=== PATIENT | male | born 1945 | race Caucasian/White ===

== ENCOUNTER 2016-04-24 01:37 | Inpatient (IN) | payer MEDICARE, OTHER ==
--- NOTE | 2016-04-23 03:55 | NUR ---
ARRIVED TO FLOOR FROM ER, ALERT AND ORIENTED X3, RESP UNLAB WITH O2 @ 4L NC IN USE. RT CHEST BURN FROM ABLATION NOTED WITH BURN NOTED ON LEFT UPPER BACK FROM ABLATION. UP AD HAIDER W/O DIFF. CONTINUE TO MONITOR. HOB UP SR UP X2, C/L IN REACH. AT BEDSIDE FOR NIGHT.
[~2016-04-24] VITALS: Ht 182.9 cm; Wt 108.2 kg
[2016-04-24] VITALS (17 sets, daily range): BP systolic 102–190; BP diastolic 44–96; BMI 34.0
[~2016-04-24 01:37] MED LIST: ALTACE5 MG PO; ASPIRIN EC81 M1 PO; COUMADIN3 MG PO; COUMADIN6 MG PO; FOLATE0.4 MG PO; GLUCOPHAGE1000 MG PO; ISOSORBIDE MONO60 M1 PO; LOPRESSOR25 MG PO; NORVASC5 MG PO; PLAVIX75 MG PO; PROSCAR5 MG PO; SYNTHROID50 MCG PO; UROXATRAL10 MG PO; VITAMIN B-121000 MCG PO; VITAMIN D PO; ZOCOR20 MG PO
[2016-04-24 02:07] LABS: BASOPHILS 0.2 % (0.0-2.0); EOSINOPHILS 1.2 % (0-7); HEMATOCRIT 38.6 % (42.0-54.0); HEMOGLOBIN 13.3 g/dL (13.5-17.5); IMMATURE GRANULOCYTES 0.4 % (0-5); LYMPHOCYTES 9.4 % (15-50); MCH 30.6 pg (26.0-34.0); MCHC 34.5 g/dL (31.0-37.0); MCV 88.9 fL (80.0-100.0); MEAN PLATELET VOLUME 10.6 fL (7.4-10.4); MONOCYTES 8.3 % (2-11); NEUTROPHILS 80.5 % (40-80); PLATELET COUNT 145 10x3/uL (130-400); RBC 4.34 10x6/uL (4.20-6.10); RDW 14.7 % (11.5-14.5); WBC 10.8 10x3/uL (4.8-10.8)
[2016-04-24 02:16] LABS: INR 1.92 (0.85-1.17); PROTIME 21.9 SECONDS (11.6-15.0)
[2016-04-24 02:20] LABS: APPEARANCE CLEAR (CLEAR); COLOR YELLOW (YELLOW); LEUKOCYTE ESTERASE NEGATIVE (NEGATIVE); SPECIFIC GRAVITY 1.015 (1.005-1.020)
[2016-04-24 02:21] LABS: BILIRUBIN NEGATIVE (NEGATIVE); GLUCOSE NEGATIVE (NEGATIVE); KETONE NEGATIVE (NEGATIVE); NITRITE NEGATIVE (NEGATIVE); PROTEIN NEGATIVE (NEGATIVE); UROBILINOGEN NORMAL (NORMAL)
[2016-04-24 02:21] LABS: ALBUMIN 3.2 g/dL (3.4-5.0); ALKALINE PHOSPHATASE 53 U/L (46-116); ALT (SGPT) 21 U/L (10-68); CALC OSMOLALITY 281 mosm/kg (275-300); CALCIUM 8.7 mg/dL (8.5-10.1); CARBON DIOXIDE 27.8 mmol/L (21.0-32.0); CHLORIDE - SERUM 104 mmol/L (98-107); GLUCOSE 133 mg/dL (74-106); POTASSIUM - SERUM 3.3 mmol/L (3.5-5.1); PROTEIN - SERUM 6.4 g/dL (6.4-8.2); SODIUM 141 mmol/L (136-145); UREA NITROGEN 11 mg/dL (7-18); eGFR NON AFRICAN AMERICAN 79 mL/min (90-120)
[2016-04-24 02:38] LABS: PRO BNP 2258 pg/mL (0-125); THYROID STIMULATING HORMONE 0.45 uIU/mL (0.36-3.74)
[2016-04-24 02:41] LABS: TROPONIN-I 0.978 ng/mL (0.000-0.060)
--- NOTE | 2016-04-24 04:17 | NUR ---
PT ALERT ORIENTED CONVERSANT. TRANSFERED SELF FROM STRETCHER TO BED. IV TO LEFT HAND, FLUSHES NO S/S INFILTRATION. RECTANGULAR PARHAM NOTED TO RIGHT CHEST AND LEFT FLANK
--- NOTE | 2016-04-24 04:25 | NUR ---
PT ER PAPERWORK STATES THAT PT IS A SMOKER. CLARIFIED WITH PT SPOUSE. PT HAS NEVER SMOKED
[2016-04-24] MEDS ORDERED: DILATRATE-SR40 MG PO (04:39)
[2016-04-24] MEDS ORDERED: BETAPACE 80 MG80 MG PO (04:52)
[2016-04-24] MEDS ORDERED: CARTIA XT120 MG PO (04:52)
[2016-04-24] MEDS ORDERED: SYNTHROID50 MCG PO (04:54)
[2016-04-24] MEDS ORDERED: [UNRECOGNIZED DRUG - OTHER] (05:09)
[2016-04-24] MEDS ORDERED: FOLIC ACID1 MG PO (05:09)
[2016-04-24] MEDS ORDERED: CARAFATE1 G PO (10:47)
[2016-04-24] MEDS ORDERED: OMEPRAZOLE20 M1 PO (10:48)
[2016-04-24] MEDS ORDERED: SORINE80 MG PO (10:50)
[2016-04-24] MEDS ORDERED: PROSCAR5 MG PO (10:51)
--- NOTE | 2016-04-24 11:15 | NUR ---
ALERT AND ORIENTED X4. COMPLAINS OF SOB. BP-182/109, P-109 SINUS TACH ON TELEMETRY. 02-80% 10L NC. NOTIFY DR. GONZALEZ. 40MG LASIX IV ORDERED. LUNGS CRACKLE. RESPIRATIONS LABORED. OXYMIZER 10L UNSUCCESSFUL IMPROVING O2 SAT. RESPIRATORY INITIATES 100% NONREBREATHER MASK. BP-215/111, P-111 SINUS TACH ON TELEMETRY. O2-90% WITH 100% NONREBREATHER MASK. ORDER TO TRANSFER TO ICU. PATIENT'S CALLED TO INFORM CHANGE. TRANSFER TO ROOM 2301. BEDSIDE REPORT GIVEN TO NICKY VIDAL.
--- NOTE | 2016-04-24 11:35 | NUR ---
RECIEVED PT FROM FLOOR VIA BED ACCOMPANIED BY FLOOR NURSE AND RESPIRATORY THERAPY. RECIEVED REPORT FROM FLOOR NURSE. NOTED RESPIRATIONS AT 30 WITH USE OF ACCESSORY MUSCLES. PT IS ALERT AND ORIENTED. LUNG SOUNDS DIMINISHED WITH EXPIRATORY CRACKLES TO RIGHT LOWER LOBE. PULSE RATE 115 AFIB WITH PVC. BLOOD PRESSURE 190/144, MAP 158. OXYGEN SATURATION AT 96% WITH BIPAP AT 100%. WILL PHYSICIAN ON FLOOR AT THIS TIME. WILL CONTINUE PLAN OF CARE.
--- NOTE | 2016-04-24 12:00 | NUR ---
REID PLACED ORDERED. NOTED 700ML CLEAR YELLOW FLUID INTO DRAINAGE BAG. THIS IS AFTER PT HAS URINATED 450 ML INTO URINAL AT 1150. WILL CONTINUE PLAN OF CARE.
[2016-04-24 12:12] LABS: CKMB 1.9 U/L (0.0-3.6); CREATINE KINASE 64 UL (21-232); PRO BNP 2404 pg/mL (0-125)
[2016-04-24 12:17] LABS: TROPONIN-I 0.897 ng/mL (0.000-0.060)
--- NOTE | 2016-04-24 12:27 | NUR ---
NOTED CONSULT WITH DR ODONNELL FOR CAD/CHF. CALLED [facility] TO SEE IF HE WAS SALES ADVISOR. DR ODONNELL INDEED IS SALES ADVISOR. [facility] STAFF STATED THEY COULD PAGE DR ODONNELL AT THIS TIME. WAITING FOR CALLBACK.
--- NOTE | 2016-04-24 12:37 | NUR ---
NOTED MULTIPLE ORDERS CANCELLED IN SYSTEM STATING NOT CONTINUED UPON TRANSFER SUCH A PHYSICAN CONSULT, XRAYS, AND LAB ORDERS. DR GONZALEZ HAD NOTIFIED THIS NURSE OF PHYSICIAN CONSULT FOR CARDIOLOGY BEFORE COMPUTER DC ORDERS WHICH IS HOW THIS PROBLEM WAS NOTICED, BUT NOW THERE ARE OTHER ORDERS WHICH STATE CANCELLED. CALLED DR GONZALEZ AT THIS TIME TO CLARIFY IF ORDERS NEED TO BE REORDERED OR NOT. WAITING FOR DR GONZALEZ TO CALL BACK. CLIENT INTEGRATION MANAGER NOTIFIED.
--- NOTE | 2016-04-24 12:46 | NUR ---
SPOKE WITH DR GONZALEZ NOTED THE CANCELLED ORDERS WERE UNINTENTIONALLY DC BY COMPUTER DURING TRANSFER. WILL REPLACE ORDERS AT THIS TIME.
--- NOTE | 2016-04-24 12:52 | NUR ---
UP IN BED AWAKE AT THIS TIME EATING LUNCH. DENIES ANY NEEDS. NO ACUTE DISTRESS NOTED. OXYGEN SATURATION AT 96% WITH OXIMIZER AT 13L. NO COMPLAINT OF PAIN. WILL CONTINUE PLAN OF CARE.
--- NOTE | 2016-04-24 13:10 | NUR ---
NOTED THERE ARE MORE MEDS WHICH HAVE BEEN DC BY COMPUTER FROM TRANSFER. SPOKE WITH DR GONZALEZ AND SHE GAVE AN ORDER TO CONTINUE PT HOME MEDS. RECIEVED LIST OF PT HOME MEDS FROM PT . WILL CONTINUE PT HOME MEDS PER ORDERS.
--- NOTE | 2016-04-24 13:54 | NUR ---
NOTED NEW ORDERS BY DR GONZALEZ OF [facility] PRN PAIN WELL A KPAD.
--- NOTE | 2016-04-24 13:54 | NUR ---
SITTING UP IN BED AWAKE AT THIS TIME. NO DISTRESS NOTED. PRN NORCO ADMIN AT THIS TIMR FOR A PAIN LEVEL OF 5 TO HIP. NO ACUTE DISTRESS NOTED. WILL CONTINUE PLAN OF CARE.
--- NOTE | 2016-04-24 14:02 | NUR ---
SECOND IV PLACED TO LEFT AC, 20G. FLUSHES WELL.
--- NOTE | 2016-04-24 16:18 | NUR ---
SEEING ORDERS WHICH HAVE BEEN DC BY THIS NURSE. I HAVE NOT DISCONTINUED ANY ORDERS FOR THIS PATIENT. THIS OCCURRED WHEN I CLICKED THE BUTTON "PROCESS TRANSFER ORDERS" WHEN I RECIEVED THE PATIENT TO THE UNIT. BY CLICKING THIS BUTTON WAS THE ONLY WAY I COULD SEE ORDERS FOR MY PATIENT UPON ARRIVAL TO MY UNIT AND MULTIPLE ORDERS SUCH FOR MEDICATIONS, LABS, CONSULTS, AND SO ON WERE DC. THIS NURSE HAS NOT DC ANY ORDERS. HAVE SPOKEN WITH DR GONZALEZ MULTIPLE TIMES TRYING TO REINSTATE ORDERS WHICH WERE DC BY COMPUTER. AGAIN THIS NUSE HAS NOT DISCONTINUED ANY ORDERS FOR THIS PATIENT.
--- NOTE | 2016-04-24 17:29 | NUR ---
SITTING UP IN BED AWAKE AT THIS TIME. NO DISTRESS NOTED. PT STATES HE FEELS VERY GOOD. NO COMPLAINTS OF PAIN NOTED. WILL CONTINUE PLAN OF CARE.
--- NOTE | 2016-04-24 18:06 | NUR ---
UP IN BED VISITING WITH FAMILY. DENIES ANY NEEDS. NO ACUTE DISTRESS NOTED. NO SHORTNESS OF BREATH NOTED. WILL CONTINUE PLAN OF CARE.
--- NOTE | 2016-04-24 19:30 | NUR ---
RECEIVED PATIENT AWAKE IN BED WATCHING TV, ASSESSMENT COMPLETED PER FLOWSHEET. PATIENT IS AO X4, DEMEANOR IS PLEASANT. EYES PERRLA @ 3MM WITH BRISK RESPONSE, SCLERA IS WHITE. ORAL/NASAL MUCOSA IS MOIST AND INTACT, TONGUE MIDLINE. S1/S2 NOTED WITH PATIENT SHOWING AFIB-CONTROLLED WITH A RATE OF 94 ON TELEMETRY, SLIGHTLY IRREGULAR. LUNG SOUNDS ARE CLEAR BILATERAL UPPER WITH SLIGHTLY DIMINISHED LOWER, BREATHING IS EVEN AND EFFORTLESS. ABDOMEN IS ROUND/SOFT AND NON-TENDER TO PALPATION, BOWEL SOUNDS ACTIVE X4. REID SECURED IN PLACE, CLEAR YELLOW URINE NOTED IN COLLECTION BAG. ALL PULSES PALPABLE, NO WEAKNESS NOTED IN CHIEF SCIENTIFIC OFFICER/PEDAL. 20G IV L AC & 20G IV L HAND NOTED, PATENT WITH FLUIDS INFUSING. PATIENT STATES PAIN 1/10 IN R GROIN AREA, DOES NOTE NEED ANYTHING AT THIS TIME. PATIENT STATES EXTENSIVE CARDIACE HISTORY, REPORTS 5 STENTS/4 BALLOON/3 ABLASION PROCEDURES. PATIENT DENIES OTHER NEEDS AT THIS TIME, ALL VSS AND WILL CONTINUE TO MONITOR.
--- NOTE | 2016-04-24 23:00 | NUR ---
REASSESSMENT COMPLETE PER FLOWSHEET, PATIENT RESTING IN BED WITH EYES OPEN. BREATHING IS EVEN AND UNLABORED, OXYGEN SAT 98% ON 3L VIA NC. S1/S2 NOTED WITH CONTROLLED AFIB ON TELEMETRY, RHYTHM IS SLIGHTLY IRREGULAR. PATIENT STATES NO PAIN, "JUST CAN'T GET COMFORTABLE". NO FURTHER NEEDS AT THIS TIME, ALL VSS AND WILL CONTINUE TO MONITOR.
[2016-04-25] VITALS (19 sets, daily range): BP systolic 92–129; BP diastolic 53–85; Ht 182.9 cm; Wt 108.2 kg
--- NOTE | 2016-04-25 01:00 | NUR ---
PATIENT RESTIN GIN BED WITH EYES CLOSED, BREATHING IS EVEN AND EFFORTLESS. NO NEEDS AT THIS TIME, ALL VSS AND WILL CONTINUE TO MONITOR.
--- NOTE | 2016-04-25 02:56 | NUR ---
REASSESSMENT COMPLETE PER FLOWSHEET, PATIENT RESTING IN BED WITH EYES CLOSED. BREATHING IS EVEN AND UNLABORED, OXYGEN SAT 96% ON 5L VIA NC. PATIENT DENIES PAIN OR OTHER NEEDS AT THIS TIME, ALL VSS AND WILL CONTINUE TO MONITOR.
--- NOTE | 2016-04-25 05:00 | NUR ---
PATIENT RESTING IN BED WITH EYES CLOSED, BREATHING IS EVEN AND EFFORTLESS. PATIENT DENIES PAIN OR OTHER NEEDS AT THIS TIME, ALL VSS AND WILL CONTINUE TO MONITOR.
[2016-04-25 05:03] LABS: BASOPHILS 0.2 % (0.0-2.0); EOSINOPHILS 1.2 % (0-7); HEMATOCRIT 40.1 % (42.0-54.0); HEMOGLOBIN 13.9 g/dL (13.5-17.5); IMMATURE GRANULOCYTES 0.3 % (0-5); LYMPHOCYTES 14.3 % (15-50); MCH 30.3 pg (26.0-34.0); MCHC 34.7 g/dL (31.0-37.0); MCV 87.4 fL (80.0-100.0); MEAN PLATELET VOLUME 10.6 fL (7.4-10.4); MONOCYTES 7.8 % (2-11); NEUTROPHILS 76.2 % (40-80); PLATELET COUNT 151 10x3/uL (130-400); RBC 4.59 10x6/uL (4.20-6.10); RDW 14.3 % (11.5-14.5); WBC 10.4 10x3/uL (4.8-10.8)
[2016-04-25 05:13] LABS: INR 1.65 (0.85-1.17); PROTIME 19.4 SECONDS (11.6-15.0)
[2016-04-25 05:26] LABS: ANION GAP 12.6 mmol/L (8-16); BILIRUBIN - TOTAL 1.4 mg/dL (0.2-1.3); CARBON DIOXIDE 31.1 mmol/L (21.0-32.0); CREATININE - SERUM 1.1 mg/dL (0.6-1.3); MAGNESIUM - SERUM 1.3 mg/dL (1.8-2.4); PHOSPHOROUS 2.1 mg/dL (2.5-4.9); PROTEIN - SERUM 7.4 g/dL (6.4-8.2)
[2016-04-25 05:31] LABS: POTASSIUM - SERUM 2.7 mmol/L (3.5-5.1)
--- NOTE | 2016-04-25 06:09 | NUR ---
POTASSIUM 2.7, FIRST DOSE 20 MEQ K+ GIVEN AND NEXT DOSE IN 2HRS. WILL CONTINUE TO MONITOR.
--- NOTE | 2016-04-25 07:30 | NUR ---
SHIFT ASSESSMENT COMPLETE. SEE FLOW SHEET FOR FINDINGS. PT IS ALERT AND CONVERSANT. DENIES PAIN OR NEEDS AT THIS TIME. ON 3L O2 SAT 97% OR ABOVE. NO I FLUIDS INFUSING AT THIS TIME. SCD'S ON.
--- NOTE | 2016-04-25 08:15 | NUR ---
MORNING MEDICATIONS GIVEN. FIRST DOSES OF REPLACEMENT MAGNESIUM AND PHOSPHORUS GIVEN.
--- NOTE | 2016-04-25 12:17 | NUR ---
AT BEDSIDE. PT HAS BEEN RESTING WITH LIGHTS OFF AND DOOR CLOSED. VITAL SIGNS STABLE.
--- NOTE | 2016-04-25 13:11 | NUR ---
PT UP TO BEDSIDE TOILET. MINIMAL ASSIST NEEDED (ONLY TO WATCH LINES)
--- NOTE | 2016-04-25 13:32 | NUR ---
PT HAS BEEN OFF O2 FOR LAST 30 MINUTES. HAS BEEN SATTING 95-96% ON ROOM AIR EVEN WHEN UP TO TOILET. WILL CONTINUE TO MONITOR
--- NOTE | 2016-04-25 13:51 | NUR ---
CALLED CARDIOLOGY OFFICE AND SPOKE WITH ROBIN ABOUT PT BEING STABLE ENOUGH TO GO TO FLOOR. SHE SPOKE WITH MAT POWELL AND SHE GIVES CARDIOLOGY OK FOR MOVING TO FLOOR. DR PATRICIO HAS ALSO SAID PT MAY GO TO FLOOR.
--- NOTE | 2016-04-25 13:56 | NUR ---
SPOKE WITH JERILYN FERGUSON WHO HAD DR ISLAS SITTING NEXT TO HER. ASKED IF SHE WAS OK WITH MR VIDALES TO GO TO FLOOR, SHE SAID HE COULD. WILL PLACE ORDER
--- NOTE | 2016-04-25 15:34 | NUR ---
Is the patient Alert and Oriented? Yes 0 * How many steps to enter\exit or inside your home? one 0 * PCP DR Yinka Bryant 0 * [facility] [address] 0 * Preadmission Environment Home with Family 0 * ADLs Independent 0 * Equipment None 0 * Other Equipment n/a 0 * List name and contact numbers for known caregivers / representatives who currently or will assist patient after discharge: Anna CallahanJpxuad-[phone]- [phone]- home number Jono Callahan- [phone]- son 0 * Community resources currently utilized None 0 * Please name any agencies selected above. N/A 0 * Additional services required to return to the preadmission environment? No 0 * Can the patient safely return to the preadmission environment? Yes 0 * Has this patient been hospitalized within the prior 30 days at any hospital? Yes 0 Grand Total: 0
--- NOTE | 2016-04-25 16:06 | NUR ---
CM met w/ the patient and his son in the room. Patient will likely be transferred this pm to telemetry unit. He is alert and oriented. States he feels comfortable. His plan at discharge is to return to home w/ his . He will have transportation. Patient does not feel he will need home health services. States he will discuss with DR Ng. CM explained the role of case management. Advised MD would have to order H/H if indicated and he would select a provider w/ his binder caser. Has never had home care services. Patient denies any needs at this time. Patient had cardiac ablation w/ DR Durant the prior to admission. Developed fever, shortness of breath and cough. Has Hx of HTN/ Stents/ Angioplasty/ A Fib/ CAD. Reportedly has sleep apnea. NO BIPAP or CPAP. Denies any DME. States was independent in care prior to admission. PCP DR casandra Padilla [facility] [address] CM will follow to assist w/ DCP if needed.
--- NOTE | 2016-04-25 16:49 | NUR ---
PT UP IN CHAIR EATING DINNER.
--- NOTE | 2016-04-25 19:00 | NUR ---
RECEIVED PATIENT IN BED RESTING WITH EYES CLOSED, ASSESSMENT COMPLETED PER FLOWSHEET. PATIENT IS AO X4, DEMEANOR IS PLEASANT. EYES PERRLA AT 3MM WITH BRISK RESPONSE, SCLERA IS WHITE. ORAL/NASAL MUCOSA IS MOIST AND INTACT, PATIENT OXYGEN SAT 94% ON ROOM AIR. S1/S2 NOTED WITH PATIENT NSR ON TELEMETRY, RATE IS RHYTHMIC AND REGULAR. LUNG SOUNDS ARE CLEAR BILATERAL UPPER WITH SLIGHTLY DIMINISHED LOWER, BREATHING IS EVEN AND EFFORTLESS. ABDOMEN IS ROUND AND SOFT, BOWEL SOUNDS ACTIVE X4. REID SECURED IN PLACE WITH STATLOCK, CLEAR YELLOW URINE NOTED IN COLLECTION BAG. ALL PULSES PALPABLE WITH NO WEAKNESS NOTED IN DIRECTOR SALES SUPPORT/PEDAL STRENGTH. 20G PIV NOTED L HAND & L FOREARM, PATENT AND SEE FLOW SHEET FOR FLUIDS. BRUISES NOTED BILATERAL GROIN, PATIENT STATES FROM PREVIOUS CARDIAC PROCEDURES. PATIENT DENIES PAIN OR OTHER NEEDS AT THIS TIME, ALL VSS AND WILL CONTINUE TO MONITOR.
--- NOTE | 2016-04-26 | NUR ---
PATIENT XFER TO 2119, REPORT CALLED TO LOI SAUNDRES.
--- NOTE | 2016-04-26 00:30 | NUR ---
PT RECIEVED FROM ICU, ACCOMPANIED BY DAHLIA SAUNDERS AND UPDATE RECIEVED. PT AMBULATED SELF FROM WHEEL CHAIR TO BED. REID IN PLACE. PT DENIES PAIN/NEEDS AT THIS TIME. NO S&S OF ACUTE DISTRESS NOTED. TELEMETRY APPLIED. 2LNC ON. RR EVEN AND UNLABORED. S1S2 AUSCULTATED, REGULAR. LUNG SOUND CLEAR IN UPPER LOBES AND DIMINISHED IN LOWER LOBES. WILL CONTINUE TO MONITOR.
--- NOTE | 2016-04-26 02:30 | NUR ---
PT SLEEPING, NO S&S OF ACUTE DISTRESS NOTED, RR EVEN AND UNLABORED. VSS ATT, WILL CONTINUE TO MONITOR.
[2016-04-26 04:19] VITALS: BP 134/74
--- NOTE | 2016-04-26 05:26 | NUR ---
PT SLEEPING, NO S&S OF ACUTE DISTRESS NOTED. VSS ATT, WILL CONTINUE TO MONITOR.
[2016-04-26 06:01] LABS: BASOPHILS 0.2 % (0.0-2.0); EOSINOPHILS 2.7 % (0-7); HEMATOCRIT 39.9 % (42.0-54.0); HEMOGLOBIN 14.2 g/dL (13.5-17.5); IMMATURE GRANULOCYTES 0.2 % (0-5); LYMPHOCYTES 15.7 % (15-50); MCHC 35.6 g/dL (31.0-37.0); MCV 87.1 fL (80.0-100.0); MEAN PLATELET VOLUME 10.8 fL (7.4-10.4); MONOCYTES 8.5 % (2-11); NEUTROPHILS 72.7 % (40-80); PLATELET COUNT 177 10x3/uL (130-400); RBC 4.58 10x6/uL (4.20-6.10); RDW 14.2 % (11.5-14.5); WBC 9.9 10x3/uL (4.8-10.8)
[2016-04-26 06:28] LABS: ALBUMIN 3.2 g/dL (3.4-5.0); ANION GAP 13.4 mmol/L (8-16); BILIRUBIN - TOTAL 1.1 mg/dL (0.2-1.3); CALCIUM 9.5 mg/dL (8.5-10.1); CARBON DIOXIDE 30.9 mmol/L (21.0-32.0); CREATININE - SERUM 1.2 mg/dL (0.6-1.3); MAGNESIUM - SERUM 1.4 mg/dL (1.8-2.4); POTASSIUM - SERUM 3.3 mmol/L (3.5-5.1); PROTEIN - SERUM 6.8 g/dL (6.4-8.2)
[2016-04-26 07:45] VITALS: BP 138/76
[2016-04-26 12:20] VITALS: BP 141/82
--- NOTE | 2016-04-26 13:08 | NUR ---
CHECKED WITH PHARMACY([facility] ABOUT MAXIPIME COMPATIABLE WITH LASIX GTT). [facility] SAYS THEY ARE COMPATIABLE.
[2016-04-26 15:43] VITALS: BP 139/91
--- NOTE | 2016-04-26 17:10 | NUR ---
FSBS 109
[2016-04-26 20:09] VITALS: BP 108/65
[2016-04-27 01:22] VITALS: BP 132/75
[2016-04-27 05:35] LABS: BASOPHILS 0.5 % (0.0-2.0); EOSINOPHILS 5.8 % (0-7); IMMATURE GRANULOCYTES 0.7 % (0-5); LYMPHOCYTES 20.5 % (15-50); MCH 30.6 pg (26.0-34.0); MCV 87.5 fL (80.0-100.0); MEAN PLATELET VOLUME 10.5 fL (7.4-10.4); NEUTROPHILS 61.5 % (40-80); PLATELET COUNT 198 10x3/uL (130-400); RBC 4.57 10x6/uL (4.20-6.10); RDW 14.2 % (11.5-14.5); WBC 8.8 10x3/uL (4.8-10.8)
[2016-04-27 06:08] LABS: ANION GAP 12.1 mmol/L (8-16); CALCIUM 9.6 mg/dL (8.5-10.1); CARBON DIOXIDE 32.1 mmol/L (21.0-32.0); CREATININE - SERUM 1.3 mg/dL (0.6-1.3); POTASSIUM - SERUM 3.2 mmol/L (3.5-5.1)
[2016-04-27 06:27] VITALS: BP 113/59
--- NOTE | 2016-04-27 07:29 | NUR ---
PT LAYING IN BED NO DISTRESS OBSERVED CALL LIGHT IN REACH SRX2 BED LOW AND LOCKED IVP TO LEFT AC INFUSING CARDEZIM ORDERED @ 10 IN ROOM AT BEDSIDE RESPERATIONS EVEN AND UNLABORED ON 2LNC TELEMETRY READING SR WILL MONITOR
[2016-04-27 08:00] VITALS: BP 109/55
--- NOTE | 2016-04-27 11:30 | NUR ---
PT IS ALERT. ASSESSMENT DONE PER FLOWSHEET. NOOTHER NEEDS AT THIS TIME.W ILL CONTINUE TO MONITOR.
[2016-04-27 11:42] VITALS: BP 111/71
--- NOTE | 2016-04-27 12:07 | NUR ---
Nutrition follow-up: Diet: Low sodium PO intake 100% of last 3 meals Labs reviewed +BM Wt: 238# PO intake is good at this time. RDN following.
[2016-04-27] MEDS ORDERED: FLORAJEN3 CAPS460 MG PO (15:24)
[2016-04-27] MEDS ORDERED: VIBRAMYCIN 100100 MG PO (15:27)
[2016-04-27 16:00] VITALS: BP 110/74
--- NOTE | 2016-04-27 16:35 | NUR ---
Patient Name: ANGEL VIDALES Encounter No: [id number] : 1945 Primary Insurance: MEDICARE A & B Anticipated DC Date: 04-27-2016 Planned Disposition: Home DCP follow-up note: CM MET WITH PT IN ROOM TO DISCUSS DISCHARGE NEEDS AND PLANNING. CM DISCUSSED AVAILABILITY OF HOME HEALTH, REHAB SERVICES AND MEDICAL EQUIPMENT. PT DENIES DISCHARGE NEEDS. SPOUSE TO TRANSPORT HOME AT DISCHARGE. IMPORTANT MESSAGE FROM MEDICARE PROVIDED AND EXPLAINED. CM OFFERED TO HAVE HOME HEALTH CALL PT AFTER DISCHARGE TO ENSURE HE WAS DOING OK AND TO ARRANGE HOME HEALTH IF NEEDED. PT DECLINED AND REPORTS ABILITY TO CALL HIMSELF. CM EXPLAINED HOW TO CONTACT HIS PHYSICIAN'S OFFICE FOR HOME HEALTH IF NEEDED, PROVIDED PT WITH HOME HEALTH [employer] FOR 5 LOCAL AGENCIES IF NEEDED AND ALSO EXPLAINED ABILITY OF PT AND HOW TO ACCESS INPATIENT REHAB OR JAIL FACILITY FOR REHAB EVALUATION WITHIN 30 DAYS AFTER DISCHARGE FOR POSSIBLE REHAB ADMISSION IF NEEDED. PT REPORTED UNDERSTANDING, DENIES DISCHARGE NEEDS. AKILAH WILD, CASE MANAGEMENT
--- NOTE | 2016-04-28 13:59 | EC ---
PATIENT:ANGEL VIDALES DATE OF SERVICE: 04/24/16 SEX: M MEDICAL RECORD: [id number] DATE OF : [birth year] LOCATION:D.M2 D.212 AGE OF PATIENT: 70 ADMISSION DATE: 04/24/16 REFERRING PHYSICIAN: INTERPRETING PHYSICIAN: MICAELA KIM MD ECHOCARDIOGRAM REPORT ECHO CHARGES 4 ECHO COMPLETE CLINICAL DIAGNOSIS: CHF HX CAD/STENTS/AFIB ECHOCARDIOGRAPHIC MEASUREMENTS (adult normal given) AC root (d.<3.7cm) 4.0 LV Septum d (<1.2 cm> 1.4 Valve Excursion 2.3 LV Septum (systole) 1.6 Left Atria (s.<4.0cm> 3.7 LVPW d(<1.2cm) 1.7 RV (d.<2.3cm) 4.4 LVPW (sytole) 1.9 LV diastole(<5.6CM) 5.2 MV E-F(>70mm/sec) LV systole 3.8 LVOT Diameter 1.8 MV exc.(>10mm) Est.ejection fraction (50-75%) Pericardial Effusion Y DOPPLER: LVIT A 114 E LA RVSP 35 LVOT 103 AOP1/2T Asc. Ao 140 RVOT 139 RA PA 166 AV Gradient Peak 7.89 AV Mean 4.94 AV Area 2.2 MV Gradient Peak 10.21 MV Mean 4.63 MV Area COMMENTS: [employer] Bookkeeper: Ronit ABEL Flour Distributor:Raquel Nuno TAPE# PACS DATE OF SERVICE: 04/25/2016 Echocardiogram FINDINGS: 1. Left ventricular chamber size is within normal limits. Left ventricular systolic function is normal. Overall ejection fraction estimated at 55%. 2. Left atrium is within normal limits at 3.7 cm. Right atrium and right ventricular chamber sizes are mildly dilated. 3. Valvular structures have normal structure and motion. ECHOCARDIOGRAM REPORT [id number] ANGEL VIDALES 4. Doppler interrogation reveals mild mitral regurgitation, mild tricuspid regurgitation, no other valvular insufficiency or stenosis. 5. No evidence of pericardial effusion or left ventricular thrombus. TRANSINT:[id number] Voice Confirmation ID: [id number] DOCUMENT ID: [id number] MICAELA KIM MD at 1359 CC: [id number] DICTATION DATE: 04/27/16922 BANQUET STEWARD: 04/27/1658 DIS IN 04/27/16 [facility] [address] [place], [facility]
== END 2016-04-27 17:11 | disposition home or self-care (01) | DRG 189 ==
LOC: D.ER 01:37 → D.ICU 02:48 → D.M2 02:48 → D.ICU 11:32 → D.M2 04-26 00:37
PROVIDERS: Emergency Medicine; Internal Medicine Pulmonary Disease; ADMIT Family Medicine
PROC: 5A09357 Assistance with Respiratory Ventilation, Less than 24 Consecutive Hours, Continuous Positive Airway Pressure (ICD-10-PCS; principal; 2016-04-24)
PROC: 0T9B70Z Drainage of Bladder with Drainage Device, Via Natural or Artificial Opening (ICD-10-PCS; 2016-04-24)
DX: J96.01 Acute respiratory failure with hypoxia (principal); J18.9 Pneumonia, unspecified organism; I50.22 Chronic systolic (congestive) heart failure; K21.9 Gastro-esophageal reflux disease without esophagitis; I11.0 Hypertensive heart disease with heart failure; E11.9 Type 2 diabetes mellitus without complications; I48.91 Unspecified atrial fibrillation; I25.10 Atherosclerotic heart disease of native coronary artery without angina pectoris; Z95.5 Presence of coronary angioplasty implant and graft; E87.6 Hypokalemia; G47.33 Obstructive sleep apnea (adult) (pediatric); E03.9 Hypothyroidism, unspecified

== ENCOUNTER 2016-06-28 08:59 | Outpatient (CLI) | payer MEDICARE, OTHER ==
[~2016-06-28] VITALS: Ht 182.9 cm; Wt 110.0 kg
--- NOTE | ~2016-06-28 | HEMODYNAMI ---
PATIENT:ANGEL VIDALES MEDICAL RECORD: [id number] : 47 LOCATION:[facility] ADMISSION DATE: 06/28/16 Generatedon:06/28/201611:57 Patient name: ANGEL VIDALES Patient #: [id number] SSN: : 1945 Date of study: 06/28/2016 Page: Of Hemodynamic Procedure Report Patient Data Patient Demographics Procedure consent was obtained First Name: ANGEL Gender: Male Last Name: SOBEIDA : 1945 Middle Initial: W Age: 71 year(s) Patient #: [id number] Race: Additional ID: [id number] Contact details Address: [address] [place] [address] [address]ET State: [place] City: [place] Zip code: [address] Past Medical History Allergies: No known allergies Admission Admission Data Admission Date: 06/28/2016 Admission Time: 8:59 Height (in.): 72 Height (cm.): 182.88 Lab Results Lab Result Date: 06/28/2016 Lab Result Time: 0:00 Biochemistry Name Units Result Min Max BUN mg/dl 18 --(---*)-- 7 18 Creatinine mg/dl 0.9 --(-*--)-- 0.6 1.3 CBC Name Units Result Min Max Hemoglobin g/dl 14 --(*---)-- 13.5 17.5 Procedure Procedure Types Cath Procedure Diagnostic Procedure [facility] w/Coronaries FFR/IVUS Intra-Coronary IVUS Initial PCI Procedure Coronary Stent Initial Miscellaneous Procedures Moderate Sedation up to 30 minutes Procedure Description Procedure Date Procedure Date: 06/28/2016 Procedure Start Time: 11:20 Procedure End Time: 11:56 Procedure Staff Name Function Allen Ng MD Performing Physician Edwin Jain RT Scrub Kaitlin Roe RN Nurse Kushal Hanna RT Monitor Procedure Data Cath Procedure Fluoroscopy Diagnostic fluoroscopy Total fluoroscopy Time: 6.4 time: 6.4 min min Diagnostic fluoroscopy Total fluoroscopy dose: 870 dose: 870 mGy mGy Contrast Material Contrast Material Type Amount (ml) Isovue 300 122 Entry Location Entry Primary Successful Side Size Upsize Upsize Entry Closure Byrd ccessful Closure Location (Fr) 1 (Fr) 2 (Fr) Remarks Device Remarks Radial Right 6 Fr Mechanical artery Short Compression Estimated blood loss: 10 ml Diagnostic catheters Device Type Used For End Catheter Placement Terumo 5Fr Yreka 110cm Procedure catheter Procedure Complications No complications Procedure Medications Medication Administration Route Dosage Oxygen NC 2 l/min Lidocaine 2% added to field 20 Heparin Flush Bag added to field 2 bags (1000units/500ml NS) Radial Cocktail added to field 1 syringe (Verapomil 2mg/Nitro 400mcg/Heparin 1500units) Versed I.V. 1 mg Fentanyl I.V. 50 mcg Versed I.V. 1 mg Fentanyl I.V. 50 mcg Versed I.V. 1 mg Fentanyl I.V. 50 mcg Versed I.V. 1 mg Fentanyl I.V. 50 mcg Radial Cocktail I.A. 1 syringe (Verapomil 2mg/Nitro 400mcg/Heparin 1500units) Heparin Bolus I.V. 4000 units Integrilin (Bolus I.V. 10.2 ml 2mg/ml) Plavix P.O. 600 mg Hemodynamics Rest HGB: 14 (g/dl) Heart Rate: 57 (bpm) Pressure Samples Time Site Value (mmHg) Purpose Heart Use Rate(bpm) 11:32 LV 94/8,17 Snapshot 78 11:41 AO 128/69(95) Snapshot 61 Gradients Valve Time Site Site Mean SEP/DFP Peak To Heart Use 1 2 (mmHg) (sec/min) Peak Rate (mmHg) (bpm) Aortic 11:33 LV AO 71 Snapshots Pre Cath Intra NCS Post Cath Vital Signs Time Heart Resp SPO2 etCO2 NO4hwtd NIBP (mmHg) Rhythm Pain Sedation Rate (ipm) (%) (mmHg) (mmHg) Status Level (bpm) 11:02:00 57 21 97 0 0 140/77(116) NSR 0 (11) 10(A) , No pain 11:06:16 59 16 96 0 0 134/74(94) NSR 0 (11) 10(A) , No pain 11:10:32 59 19 97 0 0 131/80(101) NSR 0 (11) 10(A) , No pain 11:14:46 62 16 96 0 0 131/84(101) NSR 0 (11) 10(A) , No pain 11:19:00 64 16 95 0 0 117/78(98) NSR 0 (11) 10(A) , No pain 11:23:03 62 16 95 0 0 132/92(118) NSR 0 (11) 10(A) , No pain 11:27:15 63 15 96 0 0 142/88(107) NSR 0 (11) 10(A) , No pain 11:31:33 60 16 96 0 0 144/83(124) NSR 0 (11) 9(A) , No pain 11:35:54 67 16 95 0 0 142/79(101) NSR 0 (11) 9(A) , No pain 11:40:12 61 16 95 0 0 141/79(117) NSR 0 (11) 9(A) , No pain 11:44:28 60 16 95 0 0 134/82(119) NSR 0 (11) 9(A) , No pain 11:48:42 64 16 96 0 0 142/82(115) NSR 0 (11) 10(A) , No pain 11:51:11 64 18 98 0 0 148/88(125) NSR 0 (11) 10(A) , No pain 11:55:27 69 19 95 0 0 143/90(127) NSR 0 (11) 10(A) , No pain Medications Time Medication Route Dose Verified Delivered Reason Note s Effectiveness by by 11:01:41 Oxygen NC 2 l/min Allen Kaitlin Per physician Berenice Roe RN 11:01:50 Lidocaine 2% added 20ml Allen Villa used for to vial Berenice Ng MD procedure field 11:01:58 Heparin Flush added 2 bags Allen Villa used for Bag to Berenice Ng MD procedure (1000units/500ml field NS) 11:02:07 Radial Cocktail added 1 Allen Villa used for (Verapomil to syringe Berenice Ng MD procedure 2mg/Nitro field 400mcg/Heparin 1500units) 11:18:40 Versed I.V. 1 mg Allen Kaitlin for sedation Berenice Roe RN 11:18:53 Fentanyl I.V. 50 mcg Allen Kaitlin for sedation Berenice Roe RN 11:20:46 Fentanyl I.V. 50 mcg Allen Kaitlin for sedation Berenice Roe RN 11:20:46 Versed I.V. 1 mg Allen Kaitlin for sedation Berenice Roe RN 11:22:55 Versed I.V. 1 mg Allen Kaitlin for sedation Berenice Roe RN 11:22:57 Fentanyl I.V. 50 mcg Allen Kaitlin for sedation Berenice Roe RN 11:24:29 Versed I.V. 1 mg Allen Kaitlin for sedation Berenice Roe RN 11:24:31 Fentanyl I.V. 50 mcg Allen Kaitlin for sedation Berenice Roe RN 11:31:14 Radial Cocktail I.A. 1 Allen Allen for (Verapomil syringe Berenice Ng MD vasodilation 2mg/Nitro 400mcg/Heparin 1500units) 11:40:17 Heparin Bolus I.V. 4000 Allen Kaitlin for dose units Berenice Roe RN anticoagulation verified wtih dr ng 11:42:48 Integrilin I.V. 10.2 ml Allen Kaitlin for wast ed (Bolus 2mg/ml) Berenice Roe RN antiplatelet 9.8ml therapy 11:50:04 Plavix P.O. 600 mg Allen Kaitlin for Berenice Roe RN antiplatelet therapy Procedure Log Time Note 10:40:44 Kushal Hanna RT(R) sent for patient. Start room use. 10:47:40 ACC Patient presents with Stable Angina CCS Anginal Class 2--Slight limitation of ordinary activity. 10:47:42 Diagnostic Cath status Elective 10:47:57 Time tracking: Regular hours 10:48:03 Plan of Care:Hemodynamics will remain stable., Cardiac rhythm will remain stable., Comfort level will be maintained., Respiratory function will remain adequate., Patient/ family verbilizes understanding of procedure., Procedure tolerated without complication., Recovers from procedure without complications.. 10:48:31 Patient Height : 72 cm 10:50:57 Lab Result : BUN 18 mg/dl 10:50:57 Lab Result : Hemoglobin 14 g/dl 10:50:57 Lab Result : Creatinine 0.9 mg/dl 10:56:20 Patient received from Pre/Post Procedure Room to CCL 1 Alert and oriented. Tansferred to table in Supine position. 11:00:48 Warm blankets applied, and ruchi hugger turned on for patient comfort. 11:00:48 Correct patient and procedure confirmed by team. 11:00:50 Signed procedure consent form obtained from patient. 11:00:50 ECG and BP/O2 sat monitors applied to patient. 11:00:51 Vital chart was started 11:00:52 Baseline sample Acquired. 11:00:54 Rhythm: sinus rhythm 11:00:56 Full Disclosure recording started 11:01:41 Oxygen 2 l/min NC was administered by Kaitlin Roe RN; Per physician; 11:01:50 Lidocaine 2% 20ml vial added to field was administered by Allen Ng MD; used for procedure; 11:01:58 Heparin Flush Bag (1000units/500ml NS) 2 bags added to field was administered by Allen Ng MD; used for procedure; 11:02:07 Radial Cocktail (Verapomil 2mg/Nitro 400mcg/Heparin 1500units) 1 syringe added to field was administered by Allen Ng MD; used for procedure; 11:08:15 H&P Date Dictated: 06/22/2016 Within 30 days and on chart., H&P Addendum completed by physician on day of procedure. (MUST COMPLETE FOR ALL OUTPATIENTS). 11:08:15 Pre-procedure instructions explained to patient. 11:08:16 Pre-op teaching completed and patient verbalized understanding. 11:08:17 Family in waiting room. 11:08:19 Patient NPO since Midnight. 11:08:21 Is the patient allergic to Iodine/contrast media? No. 11:08:28 Is patient on blood thinner?No 11:08:51 Last dose of Coumadin was 06/23/16 11:08:54 Patient diabetic? Yes. 11:08:55 If diabetic: On Metformin? Yes 11:08:58 If on Metformin: Last Dose? 06/25/2016 11:09:10 Previous problem with sedation/anesthesia? No ? 11:09:12 Snore? Yes 11:09:14 Sleep apnea? Yes 11:09:16 Deviated septum? No 11:09:16 Opens mouth fully? Yes 11:09:18 Sticks out tongue? Yes 11:09:20 Airway obstruction? No ? 11:09:23 Dentures? No ? 11:09:26 Pre procedure: left dorsailis pedis pulse 1+ Palpable, but thready & weak; easily obliterated 11:09:28 Modified Jarocho's test Ulnar < 7 seconds 11:09:31 Patient pain scale 0/10 ?. 11:09:42 IV patent on arrival in left forearm with 0.9% NaCl at [facility]. 11:09:45 Lab results completed and on chart. 11:09:47 Right Radial & Left Groin area was prepped with chlora-prep and draped in sterile fashion 11:09:49 Alarms reviewed by R. N. 11:09:50 Sharps counted by scrub and verified by R.N. 11:11:01 Use device set Radial Dx 11:11:03 Tegaderm 4 x 4 opened to sterile field. 11:11:04 Acist Hand Control opened to sterile field. 11:11:05 Acist Manifold opened to sterile field. 11:11:06 Acist Syringe opened to sterile field. 11:11:07 Medline Cath Pack opened to sterile field. 11:11:07 Bag Decanter opened to sterile field. 11:11:07 Terumo 6Fr Slender Glidesheath opened to sterile field. 11:11:08 St Marlon 260cm J .035 wire opened to sterile field. 11:11:08 MBrace Wrist Support opened to sterile field. 11:16:30 Zero performed for pressure channel P1 11:18:09 --------ALL STOP TIME OUT------ 11:18:10 Final Timeout: patient, procedure, and site verified with staff and physician. All members of the team are in agreement. 11:18:12 Right Radial & Left Groin site verified by team. 11:18:16 Physical assessment completed. ASA score P 2 - A patient with mild systemic disease as per Allen Ng MD. 11:18:20 Sedation plan: IV Moderate Sedation Versed, Fentanyl 11:18:40 Versed 1 mg I.V. was administered by Kaitlin Roe RN; for sedation; 11:18:53 Fentanyl 50 mcg I.V. was administered by Kaitlin Roe RN; for sedation; 11:20:08 Baseline sample Acquired. 11:20:33 Procedure started. 11:20:42 Local anesthetic to right radial artery with Lidocaine 2% by Allen Ng MD.INITIAL ACCESS ONLY 11:20:46 Fentanyl 50 mcg I.V. was administered by Kaitlin Roe RN; for sedation; 11::46 Versed 1 mg I.V. was administered by Kaitlin Roe RN; for sedation; 11::55 Versed 1 mg I.V. was administered by Kaitlin Roe RN; for sedation; 11::57 Fentanyl 50 mcg I.V. was administered by Kaitlin Roe RN; for sedation; 11:24:29 Versed 1 mg I.V. was administered by Kaitlin Roe RN; for sedation; 11:24:31 Fentanyl 50 mcg I.V. was administered by Kaitlin Roe RN; for sedation; 11:29:18 A 6 Fr Short sheath was inserted into the Right Radial artery 11:31:14 Radial Cocktail (Verapomil 2mg/Nitro 400mcg/Heparin 1500units) 1 syringe I.A. was administered by Allen Ng MD; for vasodilation; 11:32:09 A StylePuzzle 5Fr Yreka 110cm catheter was advanced over the wire and used for Procedure. 11:33:02 LV angiography performed. 11:33:04 LV gram done using DESAI 11:33:12 EF : 60 % 11:33:14 LV hemodynamics recorded. 11:33:16 Injector settings: Ml/sec: 7, Volume: 15, 11:33:32 RCA angiography performed. 11:33:49 Catheter exchanged over wire. 11:34:05 Cordis 6FR XBLAD 3.5 guide catheter opened to sterile field. 11:34:06 Daniels Whisper J 300cm 0.014 guide wire opened to sterile field. 11:34:06 Sqwiggle BasixCompak Inflation Kit opened to sterile field. 11:34:19 6 Fr XBLAD 3.5 guide catheter was inserted over the wire 11:36:01 LCA angiography performed. 11:38:12 Catheter exchanged over wire. 11:38:38 Newsgrapetronic Launcher 6Fr AR 2.0 guide catheter opened to sterile field. 11:38:39 Spurgeon [place]ag[place] IVUS Catheter opened to sterile field. 11:40:07 6 Fr AR 2 guide catheter was inserted over the wire 11:40:17 Heparin Bolus 4000 units I.V. was administered by Kaitlin Roe RN; for anticoagulation; dose verified wtih dr ng 11:40:51 Procedure type changed to Cath procedure, Diagnostic procedure, LHC, C w/Coronaries, FFR/IVUS, Intra-Coronary IVUS Initial, PCI procedure, Coronary Stent Initial, Miscellaneous Procedures, Moderate Sedation up to 30 minutes 11:40:57 Whisper wire advanced. 11:41:20 Wire advanced across lesion. 11:41:28 IVUS catheter advanced over wire. 11:42:48 Integrilin (Bolus 2mg/ml) 10.2 ml I.V. was administered by Kaitlin Roe RN; for antiplatelet therapy; wasted 9.8ml 11:43:05 IVUS pass to RCA lesion performed. 11:43:23 IVUS catheter removed over wire. 11:48:06 Inflation Number: 1 A Daniels Ultra Rx 4.5 x 18 stent was prepped and advanced across the Prox RCA. The stent was deployed at 17 YADIRA for 0:10 (min:sec). 11:48:54 Stent catheter was removed intact over wire. 11:48:55 Wire removed. 11:48:55 Guide catheter removed. 11:49:03 Terumo TR Band Large opened to sterile field. 11:49:24 Sheath removed intact; hemostasis achieved with Mechanical Compression to the Right Radial artery. 11:49:27 Procedure ended.(Physican Out) 11:49:39 Fluoroscopy time 06.40 minutes. 11:49:43 Fluoroscopy dose: 870 mGy 11:49:43 Flurop Dose total: 870 11:49:47 Contrast amount:Isovue 300 122ml. 11:49:49 Sharps counted by scrub and verified by R.N. 11:49:52 TR band inflated with 12cc of air. 11:49:53 Insertion/operative site no bleeding no hematoma. 11:49:56 Post Procedure Pulses reassessed and unchanged 11:49:58 Post-procedure physical assessment completed. ASA score P 2 - A patient with mild systemic disease as per Allen Ng MD. 11:50:02 Post procedure rhythm: unchanged. 11:50:04 Plavix 600 mg P.O. was administered by Kaitlin Roe RN; for antiplatelet therapy; 11:50:05 Estimated blood loss: 10 ml 11:50:06 Post procedure instruction explained to patient.Patient verbalizes understanding. 11:50:07 Patient needs reinforcement of post procedure teaching. 11:50:14 Procedure Complication : No complications 11:52:43 Procedure and supply charges have been captured, reviewed, submitted and are correct. 11:56:39 Vital chart was stopped 11:56:39 See physician's report for complete and final results. 11:56:41 Report given to PCU. 11:56:43 Patient transfered to PCU with Bed. 11:56:46 Procedure ended. 11:56:46 Full Disclosure recording stopped 11:56:51 End room use (Document Last) Intervention Summary Intervention Notes Time ActionType Lesion and Equipment Action# Pressure Duration Attributes Used 11:48:06 Place stent Prox RCA Daniels 1 17 00:10 Ultra Rx 4.5 x 18 stent Device Usage Item Name Manufacture Quantity Catalog Hospital Part Current Minimal Lot# / Number Charge Number Stock Stock Serial# Code Tegaderm 4 1 [id number] 336337 5 x 4 Acist Hand Acist 1 84275 788410 746195 510366 5 Control Medical Systems Inc Acist Acist 1 57833 321163 298341 251343 5 Manifold Medical Systems Inc Acist Acist 1 92828 325458 200520 824434 20 Syringe Medical Systems Inc Medline Cardinal 1 [id number] 849282 18630 617330 5 Cath Pack Health Bag Microtek 1 2002S 395174 35887 282820 5 Dec[employer]ova[employer]unt Inc. Terumo 6Fr Terumo 1 [id number] 374892 527598 773611 [address] St Marlon 1 207581 964206 232223 164027 30 260cm J .035 wire MBrace Advanced 1 [id number] 984609 57648 185341 5 Wrist Vascular Support Dynamics Terumo 5Fr Terumo 1 13-7901 922187 488352 825379 5 Yreka 110cm catheter Cordis 6FR Cardinal 1 [id number] 683090 198395 066997 10 XBLAD 3.5 Health guide catheter Daniels Daniels 1 [id number] 446006 004350 327900 5 Whisper J Vascular 300cm 0.014 guide wire Merit Merit 1 [id number] 353815 911466 213797 15 BasixCompak Medical Inflation Kit Medtronic Medtronic 1 [id number] 794923 70527 065187 1 Launcher 6Fr AR 2.0 guide catheter Spurgeon Spurgeon 1 [id number] 810188 623389 507589 8 [place] Eagleye IVUS Catheter Daniels Daniels 1 [id number] 483585 246469 274533 5 [id number] Ultra Rx Vascular 4.5 x 18 stent Terumo TR Terumo 1 [id number] 526572 555901 064991 40 Band Large Signature Audit [place] Stage Time Signature Unsigned Intra-Procedure 06/28/2016 Kushal Hanna 11:57:08 AM RT(R) Signatures Monitor : Kushal Hanna RT Signature : Date : Time : [place] [id number] [place] [address]
--- NOTE | ~2016-06-28 | HEMODYNAMI ---
PATIENT:ANGEL VIDALES MEDICAL RECORD: [id number] : 47 LOCATION[id number] ADMISSION DATE: 06/28/16 Generatedon:06/29/20169:43 Patient name: ANGEL VIDALES Patient #: [id number] : 1945 Date of study: 06/29/2016 Page: Of Hemodynamic Procedure Report Patient Data Patient Demographics Procedure consent was obtained First Name: ANGEL Gender: Male Last Name: SOBEIDA : 1945 Middle Initial: W Age: 71 year(s) Patient #: [id number] Race: SSN: [id number] Additional ID: [id number] Contact details Address: [address] [place] [address] [address] State: [place] City: [place] Zip code: [address] Past Medical History Allergies: No known allergies Admission Admission Data Admission Date: 06/28/2016 Admission Time: 8:59 Arrival Date: 06/29/2016 Arrival Time: 0:00 Admit Source: Other Room #: D.2117 Height (in.): 72 Height (cm.): 182.88 Lab Results Lab Result Date: 06/28/2016 Lab Result Time: 0:00 Biochemistry Name Units Result Min Max BUN mg/dl 18 --(---*)-- 7 18 Creatinine mg/dl 0.9 --(-*--)-- 0.6 1.3 CBC Name Units Result Min Max Hemoglobin g/dl 14 --(*---)-- 13.5 17.5 Procedure Procedure Types Cath Procedure PCI Procedure Coronary Stent Initial Miscellaneous Procedures Moderate Sedation up to 15 minutes Procedure Description Procedure Date Procedure Date: 06/29/2016 Procedure Start Time: 9:27 Procedure End Time: 9:40 Procedure Staff Name Function Allen Ng MD Performing Physician Tawny Houston RT Scrub Rafa Izquierdo RN Nurse Seble Bocanegra RT Monitor Procedure Data Cath Procedure Fluoroscopy Diagnostic fluoroscopy Total fluoroscopy Time: 4.1 time: 4.1 min min Diagnostic fluoroscopy Total fluoroscopy dose: 706 dose: 706 mGy mGy Contrast Material Contrast Material Type Amount (ml) Isovue 300 59 Entry Location Entry Primary Successful Side Size Upsize Upsize Entry Closure Succes sful Closure Location (Fr) 1 (Fr) 2 (Fr) Remarks Device Remarks Femoral Left 6 Fr Exoseal artery Short Estimated blood loss: 10 ml Procedure Complications No complications Procedure Medications Medication Administration Route Dosage Oxygen NC 2 l/min Lidocaine 2% added to field 20 Heparin Flush Bag added to field 2 bags (1000units/500ml NS) 0.9% NaCl I.V. 100 ml/hr Versed I.V. 2 mg Fentanyl I.V. 100 mcg Heparin Bolus I.V. 4000 units Fentanyl I.V. 50 mcg Hemodynamics Rest HGB: 14 (g/dl) Heart Rate: 61 (bpm) Snapshots Pre Cath Intra NCS Post Cath Vital Signs Time Heart Resp SPO2 NIBP (mmHg) Rhythm Pain Sedation Rate (ipm) (%) Status Level (bpm) 9:18:55 60 17 98 150/67(126) NSR 0 (11) 10(A) , No pain 9:23:15 62 16 95 145/74(113) NSR 0 (11) 10(A) , No pain 9:27:31 61 16 96 136/92(115) NSR 0 (11) 10(A) , No pain 9:31:49 60 15 94 152/78(119) NSR 0 (11) 10(A) , No pain 9:36:03 61 15 96 146/88(123) NSR 0 (11) 9(A) , No pain 9:40:21 62 17 96 146/84(115) NSR 0 (11) 10(A) , No pain Medications Time Medication Route Dose Verified Delivered Reason Notes Effectiveness by by 9:14:15 Oxygen NC 2 Allen Craig used for l/min Berenice Izquierdo RN procedure 9:14:21 Lidocaine 2% added 20ml Allen Villa for local to vial Berenice Ng MD anesthetic field 9:14:28 Heparin Flush added 2 Allen Villa used for Bag to bags Berenice Ng MD procedure (1000units/500ml field NS) 9:14:37 0.9% NaCl I.V. 100 Allen Buffie Per physician ml/hr Berenice Izquierdo RN 9:28:09 Versed I.V. 2 mg Allen Craig for sedation Berenice Izquierdo RN 9:28:15 Fentanyl I.V. 100 Allen Craig for sedation mcg Berenice Izquierdo RN 9:30:46 Heparin Bolus I.V. 4000 Allen Craig for verifie d units Berenice Izquierdo RN anticoagulation with dr ng 9:33:12 Fentanyl I.V. 50 Allen Craig for sedation mcg Berenice Izquierdo RN Procedure Log Time Note 8:41:37 Arrival Date: 06/29/2016 12:00:00 AM 8:41:39 Admit Source: Other 8:41:55 Procedure type changed to Cath procedure, PCI procedure, Coronary Stent Initial, Miscellaneous Procedures, Moderate Sedation up to 15 minutes 8:42:02 Diagnostic Cath Status : Elective 8:43:18 Tawny Houston RT(R) sent for patient. Start room use. 8:43:19 Time tracking: Regular hours 8:43:24 Plan of Care:Hemodynamics will remain stable., Cardiac rhythm will remain stable., Comfort level will be maintained., Respiratory function will remain adequate., Patient/ family verbilizes understanding of procedure., Procedure tolerated without complication., Recovers from procedure without complications.. 9:06:51 Patient received from PCU to [facility] 2 Alert and oriented. Tansferred to table in Supine position. 9:06:52 Warm blankets applied, and ruchi hugger turned on for patient comfort. 9:06:52 Correct patient and procedure confirmed by team. 9:06:54 Signed procedure consent form obtained from patient. 9:06:54 ECG and BP/O2 sat monitors applied to patient. 9:06:55 Full Disclosure recording started 9:14:15 Oxygen 2 l/min NC was administered by Rafa Izquierdo RN; used for procedure; 9:14:21 Lidocaine 2% 20ml vial added to field was administered by Allen Ng MD; for local anesthetic; 9:14:28 Heparin Flush Bag (1000units/500ml NS) 2 bags added to field was administered by Allen Ng MD; used for procedure; 9:14:37 0.9% NaCl 100 ml/hr I.V. was administered by Rafa Izquierdo RN; Per physician; 9:17:36 Seble Bocanegra RT(R) was relieved by Seble JUSTIN(R) as monitoring person 9:17:40 Vital chart was started 9:17:42 Baseline sample Acquired. 9:17:45 Rhythm: sinus rhythm 9:17:55 H&P Date Dictated: 06/28/2016 Within 30 days and on chart.. 9:17:57 Pre-procedure instructions explained to patient. 9:17:59 Family in patients room. 9:18:01 Patient NPO since Midnight. 9:18:16 Patient allergic to No known allergies 9:18:19 Is the patient allergic to Iodine/contrast media? No. 9:18:30 Is patient on blood thinner?Yes 9:18:51 ACC The patient was administered the following blood thiners within the last 24 hours: ACCPlavix 9:18:53 Patient diabetic? Yes. 9:18:54 If diabetic: On Metformin? Yes 9:19:00 If on Metformin: Last Dose? 06/26/2016 9:19:05 Snore? Yes 9:19:06 Sleep apnea? Yes 9:19:13 Dentures? No ? 9:19:20 Patient pain scale 0/10 ?. 9:19:25 IV patent on arrival in left hand with 0.9% NaCl at [facility]. 9:19:31 Lab results completed and on chart. 9:19:34 Left groin area was prepped with chlora-prep and draped in sterile fashion 9:19:36 Alarms reviewed by R. N. 9:19:36 Sharps counted by scrub and verified by R.N. 9:19:38 Physician paged 9:20:37 Physician arrived 9:20:59 Use device set Femoral PCI 9:21:15 Acist Syringe opened to sterile field. 9:21:15 Acist Hand Control opened to sterile field. 9:21:15 Bag Decanter opened to sterile field. 9:21:16 Medline Cath Pack opened to sterile field. 9:21:16 Terumo 6Fr Roebuck Sheath opened to sterile field. 9:21:17 St Marlon 260cm J .035 wire opened to sterile field. 9:21:17 Merit BasixCompak Inflation Kit opened to sterile field. 9:21:18 Acist Manifold opened to sterile field. 9:21:19 Tegaderm 4 x 4 opened to sterile field. 9:21:21 Daniels Whisper J 300cm 0.014 guide wire opened to sterile field. 9:27:29 --------ALL STOP TIME OUT------ 9:27:30 Final Timeout: patient, procedure, and site verified with staff and physician. All members of the team are in agreement. 9:27:32 Left groin site verified by team. 9::35 Physical assessment completed. ASA score P 2 - A patient with mild systemic disease as per Allen Ng MD. 9:27:38 Sedation plan: IV Moderate Sedation Versed, Fentanyl 9::42 Procedure started. 9::48 Local anesthetic to left femerol artery with Lidocaine 2% by Allen Ng MD.INITIAL ACCESS ONLY 9:28:04 A 6 Fr Short sheath was inserted into the Left Femoral artery 9:28:09 Versed 2 mg I.V. was administered by Rafa Izquierdo RN; for sedation; 9::15 Fentanyl 100 mcg I.V. was administered by Rafa Izquierdo RN; for sedation; 9:28:33 Cordis 6FR XBLAD 3.5 guide catheter opened to sterile field. 9:30:46 Heparin Bolus 4000 units I.V. was administered by Rafa Izquierdo RN; for anticoagulation; verified with dr ng 9::42 ACC PCI Site: [facility] has ?% stenosis. 9:31:51 6 Fr XBLAD 3.5 guide catheter was inserted over the wire 9:31:56 Whisp wire advanced. 9:31:57 Wire advanced across lesion. 9:33:12 Fentanyl 50 mcg I.V. was administered by Rafa Izquierdo RN; for sedation; 9:36:03 Inflation Number: 1 A Medtronic Resolute 2.5 X 14 stent was prepped and advanced across the Mid CX. The stent was deployed at 13 YADIRA for 0:10 (min:sec). 9:36:40 Stent catheter was removed intact over wire. 9:36:41 Wire removed. 9:36:42 Guide catheter removed. 9:37:00 Cordis 6Fr Exoseal opened to sterile field. 9:37:33 Sheath removed intact; hemostasis achieved with Exoseal to the Left Femoral artery. 9:37:40 Procedure ended.(Physican Out) 9:37:54 Fluoroscopy time 04.10 minutes. 9:38:10 Fluoroscopy dose: 706 mGy 9:38:10 Flurop Dose total: 706 9:38:14 Contrast amount:Isovue 300 59ml. 9:38:15 Sharps counted by scrub and verified by R.N. 9:38:42 Insertion/operative site no bleeding no hematoma. 9:38:49 Post-op/insertion site Left Femoral artery dressed using a 4 x 4 and Tegaderm. 9:38:57 Post left femerol artery:stable, clean and dry 9:38:59 Post Procedure Pulses reassessed and unchanged 9:39:06 Post-procedure physical assessment completed. ASA score P 2 - A patient with mild systemic disease as per Allen Ng MD. 9:39:11 Post procedure rhythm: unchanged. 9:39:14 Estimated blood loss: 10 ml 9:39:15 Post procedure instruction explained to patient.Patient verbalizes understanding. 9:39:21 Procedure and supply charges have been captured, reviewed, submitted and are correct. 9:39:45 Procedure Complication : No complications 9:39:52 Vital chart was stopped 9:39:53 See physician's report for complete and final results. 9:39:55 Report given to [facility]. 9:39:58 Patient transfered to [facility] with Bed. 9:40:02 Procedure ended. 9:40:02 Full Disclosure recording stopped 9:40:06 End room use (Document Last) Intervention Summary Intervention Notes Time ActionType Lesion and Equipment Action# Pressure Duration Attributes Used 9:36:03 Place stent Mid CX Medtronic 1 13 00:10 Resolute 2.5 X 14 stent Device Usage Item Name Manufacture Quantity Catalog Hospital Part Current Minimal Lot# / Number Charge Number Stock Stock Serial# Code Acist Acist 1 [id number] 140981 732699 [id number] 20 Syringe Medical Systems Inc Acist Hand Acist 1 69336 126223 434055 436582 5 Control Medical Systems Inc Bag Microtek 1 2002S 958141 20367 236919 5 [employer] Medline Cardinal 1 [id number] 372739 55483 802695 5 Cath Pack Health Terumo 6Fr Terumo 1 [id number] 515527 044795 807221 [address]lon St Marlon 1 505250 945343 466221 401383 30 260cm J .035 wire Merit Merit 1 [id number] 635111 194995 496704 15 [employer] Medical Inflation Kit [facility]ist [facility] 1 89028 881440 932748 631850 5 DLC Distributors Systems Inc Tegaderm 4 3M 1 1626W 654530 623643 054030 5 x 4 Daniels Daniels 1 [id number] 073213 814014 218633 5 Whisper J Vascular 300cm 0.014 guide wire Cordis 6FR Cardinal 1 [id number] 059072 788829 160925 10 XBLAD 3.5 Health guide catheter Medtronic Medtronic 1 [id number] 679354 937781 1 [id number] Resolute 2.5 X 14 stent Cordis 6Fr Cardinal 1 EX600 402936 309349 287030 10 Figure 1 Signature Audit [place] Stage Time Signature Unsigned Intra-Procedure 06/29/2016 Seble Bocanegra 9:42:56 AM RT(R) Signatures Monitor : Seble Bocanegra Signature : RT Date : Time : [address] [place] [address]
[~2016-06-28 08:59] MED LIST changes: +BETAPACE 80 MG80 MG PO; +CARAFATE1 G PO; +CARTIA XT120 MG PO; +DILATRATE-SR40 MG PO; +FLORAJEN3 CAPS460 MG PO; +FOLIC ACID1 MG PO; +OMEPRAZOLE20 M1 PO; +SORINE80 MG PO; +VIBRAMYCIN 100100 MG PO; +[UNRECOGNIZED DRUG - OTHER]
[2016-06-28] MEDS ORDERED: NORVASC5 MG PO (09:21)
[2016-06-28] MEDS ORDERED: CENTRUM COMPLE1 EACH PO (09:23)
[2016-06-28 09:24] VITALS: BP 130/79; BMI 33.3
[2016-06-28 10:02] LABS: INR 0.97 (0.85-1.17); PROTIME 12.8 SECONDS (11.6-15.0)
[2016-06-28 10:12] LABS: CALC OSMOLALITY 287 mosm/kg (275-300); CALCIUM 9.1 mg/dL (8.5-10.1); CARBON DIOXIDE 22.9 mmol/L (21.0-32.0); CHLORIDE - SERUM 109 mmol/L (98-107); CREATININE - SERUM 0.9 mg/dL (0.6-1.3); GLUCOSE 119 mg/dL (74-106); POTASSIUM - SERUM 4.1 mmol/L (3.5-5.1); SODIUM 143 mmol/L (136-145); UREA NITROGEN 18 mg/dL (7-18); eGFR NON AFRICAN AMERICAN 89 mL/min (90-120)
[2016-06-28 10:31] LABS: HEMATOCRIT 40.6 % (42.0-54.0); LYMPHOCYTES 23.3 % (15-50); MCH 30.6 pg (26.0-34.0); MCHC 34.5 g/dL (31.0-37.0); MCV 88.6 fL (80.0-100.0); MEAN PLATELET VOLUME 10.7 fL (7.4-10.4); NEUTROPHILS 66.2 % (40-80); PLATELET COUNT 188 10x3/uL (130-400); RBC 4.58 10x6/uL (4.20-6.10); RDW 13.8 % (11.5-14.5); WBC 6.6 10x3/uL (4.8-10.8)
--- NOTE | 2016-06-28 12:19 | NUR ---
TRANSFER FROM [facility]. VS WNL. RIGHT WRIST STABLE WITH TR BAND INTACT. WILL CONT. PLAN OF CARE.
[2016-06-28 12:21] VITALS: BP 157/87; Ht 182.9 cm; Wt 110.0 kg
--- NOTE | 2016-06-28 14:34 | NUR ---
C/O TROUBLE BREATHING. 02 SATS 99% ON 02 3L NC. LUNGS SOUNDS CLEAR. FLUIDS TURNED DOWN TO KVO. WILL CONT. TO MONITOR.
--- NOTE | 2016-06-28 16:02 | NUR ---
TR BAND DCD WITHOUT BLKEEDING OR HEMATOMA NOTED.
[2016-06-28 16:12] VITALS: BP 138/85
[2016-06-28 19:00] VITALS: BP 150/91
--- NOTE | 2016-06-29 06:51 | NUR ---
MEDITECH DOWN THROUGHOUT THE SHIFT, SEE NARRATIVE PAPER CHARTING.
[2016-06-29 08:50] VITALS: BP 188/72
--- NOTE | 2016-06-29 09:17 | NUR ---
PRE-OPS GIVEN. TO RETAINING ROOM CUTTER BY BED.
--- NOTE | 2016-06-29 10:04 | NUR ---
BACK FROM TEACHER ASST. VS WNL. LEFT GROIN STABLE WITHOUT BLEEDING OR HEMATOMA NOTED. WILL MONITOR.
[2016-06-29] MEDS ORDERED: PLAVIX75 MG PO (12:28)
--- NOTE | 2016-06-29 13:45 | NUR ---
BED REST UP. GROIN STABLE.
--- NOTE | 2016-06-29 14:02 | NUR ---
IV AND TELEMETRY DCD. DC PLANS GIVEN. UNDERSTANDING VOICED. ESCORTED TO CAR BY W/C.
--- NOTE | 2016-07-01 10:19 | DS ---
PATIENT:ANGEL VIDALES :47 MEDICAL RECORD: [id number] DISCHARGE SUMMARY ADMISSION DATE: 06/28/16 DISCHARGE DATE: 06/29/16 DISCHARGE DIAGNOSES: 1. Angina. 2. Coronary artery disease. 3. Percutaneous transluminal coronary angioplasty stent of left circumflex and right coronary artery this admission. HOSPITAL COURSE: Mr. Vidales presents with anginal symptomatology, found to have 2-vessel coronary artery disease of the RCA and left circumflex, underwent successful PTCA stent of above territories, had an uneventful postop course. He was discharged home with the addition of aspirin and Plavix to his medical regimen. He will follow up with [facility] in 1 month. TRANSINT:[id number] Voice Confirmation ID: [id number] DOCUMENT ID: [id number] MICAELA KIM MD at 1019 CC: [id number] DICTATION DATE: 06/29/16 0942 LAUNDRY TECH: 06/30/16 0021 DEP CLI 06/29/16 [place] [place] [address]
--- NOTE | 2016-07-01 10:19 | OP ---
PATIENT NAME: ANGEL VIDALES MEDICAL RECORD: [id number] :47 LOCATION:D.CAT ADMISSION DATE: SURGEON: MICAELA KIM MD DATE OF OPERATION: 06/29/2016 PROCEDURES: 1. PTCA stent left circumflex. 2. Selective coronary angiography. PROCEDURE IN DETAIL: After informed consent was obtained and after detailed explanation of risks, benefits as well as alternative therapies, the patient elected to proceed with angiogram and angioplasty. The left femoral area was prepped and draped in normal sterile fashion. The left femoral artery was cannulated via modified Seldinger technique with placement of 6-Pakistani sheath. All catheters exchanged through this sheath. FINDINGS: The left circumflex has a 90% in-stent restenosis addressed with a 2.5 x 14 mm Resolute stent. Result was 0% residual stenosis. OVERALL IMPRESSION: Successful percutaneous transluminal coronary angioplasty stent of the left circumflex going from 90% initial stenosis to 0% residual. TRANSINT:[id number] Voice Confirmation ID: [id number] DOCUMENT ID: [id number] MICAELA KIM MD at 1019 CC: [id number] DICTATION DATE: 06/29/16 0943 PRIVATE DUTY RN: 06/29/16 1628 [facility] CLI 06/29/16 [place] [address] [place] [address]
--- NOTE | 2016-07-01 10:19 | OP ---
PATIENT NAME: ANGEL VIDALES MEDICAL RECORD: [id number] :47 LOCATION:D.CAT ADMISSION DATE: SURGEON: MICAELA KIM MD DATE OF OPERATION: 06/28/2016 PROCEDURES: 1. PTCA stent RCA. 2. Intravascular ultrasound. 3. Left heart catheterization. 4. Selective coronary angiography. 5. Left ventriculogram. INDICATION: Angina and coronary artery disease. PROCEDURE: After informed consent was obtained and after a detailed explanation of risks, benefits as well as alternative therapies, the patient elected to proceed with angiogram and angioplasty. The right radial area was prepped and draped in normal sterile fashion. The right radial artery was cannulated via modified Seldinger technique with placement of 6-Croatian sheath. All catheters exchanged through this sheath. FINDINGS: The left ventriculogram was performed in standard 30-degree DESAI view, reveals good cardiac wall motion throughout all segments. Overall ejection fraction estimated 60%. SELECTIVE CORONARY ANGIOGRAPHY: 1. Left main is with no significant angiographic disease. 2. Left anterior descending has previously placed stents, these appear to be patent with no significant restenosis. No disease elsewise throughout the LAD or its branches. 3. The left circumflex has an 80% and 90% stenosis of the first obtuse marginal, otherwise only mild irregularities. 4. The right coronary has a 75% to 80% stenosis confirmed by intravascular ultrasound in the proximal vessel, previously placed stents are widely patent. PTCA STENT OF THE RCA: The stent used a 4.5 x 18 mm Ultra. Result was 0% residual stenosis. OVERALL IMPRESSION: Successful percutaneous transluminal coronary angioplasty stent of the right coronary artery going from 75%-80% initial stenosis to 0% residual. PLAN: PTCA stent of the left circumflex in the near future. TRANSINT:[id number] Voice Confirmation ID: [id number] DOCUMENT ID: [id number] MICAELA KIM MD at 1019 CC: [id number] DICTATION DATE: 06/28/16 1151 SURGICAL MANAGER: 06/28/16 1837 DEP CLI 06/29/16 [place] [address]
== END 2016-06-29 14:04 | disposition home or self-care (01) ==
LOC: D.M2 08:59 → D.CATH 08:59 → D.M2 12:10 → D.CATH 06-29 14:04
PROVIDERS: Internal Medicine Interventional Cardiology
DX: I25.119 Atherosclerotic heart disease of native coronary artery with unspecified angina pectoris (principal); I10 Essential (primary) hypertension; E78.5 Hyperlipidemia, unspecified; I48.0 Paroxysmal atrial fibrillation
CPT/HCPCS: 92928; 93458; 92978; C9600

== ENCOUNTER → 2016-09-01 08:30 | Outpatient (CLI) | payer MEDICARE, OTHER ==
[2016-06-28 12:21] VITALS: BMI 32.9
[~2016-09-01 08:30] MED LIST changes: +CENTRUM COMPLE1 EACH PO
== END | disposition home or self-care (01) ==
LOC: D.RAD 08:30 → D.RT 10:00
DX: R06.00 Dyspnea, unspecified (principal)

== ENCOUNTER → 2016-09-06 18:55 | Outpatient (CLI) | payer MEDICARE, OTHER ==
[2016-06-28 12:21] VITALS: BMI 32.9
== END | disposition home or self-care (01) ==
LOC: D.SLEEP 18:55
DX: G47.33 Obstructive sleep apnea (adult) (pediatric) (principal)

== ENCOUNTER → 2016-12-01 07:31 | Outpatient (CLI) | payer MEDICARE, OTHER ==
[2016-06-28 12:21] VITALS: BMI 32.9
== END | disposition home or self-care (01) ==
LOC: D.RT 07:31
DX: J18.9 Pneumonia, unspecified organism (principal)